=== PATIENT | female | born 1975 | race Caucasian/White ===

== ENCOUNTER 2017-03-11 19:25 | Emergency (ER) | payer OTHER ==
[~2017-03-11] VITALS: Ht 182.9 cm; Wt 86.2 kg
[2017-03-11 19:31] VITALS: BP 119/76
--- NOTE | 2017-03-11 20:20 | ED ANKLE/FOOT INJURY COMPLAINT ---
History of Present Illness General Chief Complaint: Lower Extremity Injury Stated Complaint: "X RAY LT ANKLE" Source: patient, family, old records Exam Limitations: language barrier Vital Signs & Intake/Output Vital Signs & Intake/Output Vital Signs Date Time Temp Pulse Resp B/P B/P Pulse O2 O2 Flow FiO2 Mean Ox Delivery Rate 03/11 1930 97.8 68 18 119/76 99 Room Air Allergies Coded Allergies: No Known Allergies (03/11/17) Reconcile Medications Tylenol With Codeine (Tylenol With Codeine #3 Tablet) 300 MG-30 MG TABLET 1 TAB PO BIDP PRN pain Triage Note: PT TO TRIAGE C/O LEFT ANKLE PAIN S/P ROLLING ANKLE AND FALLING THIS MORNING. PT DENIES HEAD STRIKE, NO DEFORMITY NOTED. PT WENT TO WALK IN THAT SUGGESTED PT COME FOR XRAY. 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 PT PRIMARILY UKRANIAN SPEAKING, DAUGHTER IN TRIAGE HELPING TO TRANSLATE FOR PT. STATES PAIN IS WORSE WHEN STANDING ON ANKLE. Triage Nurses Notes Reviewed? yes Occurred: this morning Duration: day(s): (1), constant Timing: single episode today Severity: moderate Severity Numbers: 7 Pain/Injury Location: Left: Ankle. Method of Injury: twisted Modifying Factors: Improves With: rest. Worsens With: movement. Associated Symptoms: swelling : No Patient currently breastfeeds: No HPI: 41 Year old female presents to the ER for evaluation compalining of left ankle pain since this morning after twisting her ankle. Pain is moderate aching nonradiating. It is worse with weight bearring. she denies any other injury. no back, hip foot or knee pain. 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 (Amrit Mendiola) Past History Travel History Traveled to [place] past 21 day No Medical History Any Pertinent Medical History? none Neurological: NONE EENT: NONE Cardiovascular: NONE Respiratory: NONE Gastrointestinal: NONE Hepatic: NONE Renal: NONE Musculoskeletal: NONE Psychiatric: NONE Endocrine: NONE Blood Disorders: NONE Cancer(s): NONE PIPE FOREMAN/Reproductive: NONE Surgical History Surgical History: none Psychosocial History What is your primary language Korean Tobacco Use: Never used ETOH Use: denies use Family History Hx Contributory? No (Amrit Mendiola) Review of Systems Review of Systems Constitutional: Reports: see HPI. Comments Review of systems: See HPI, All other systems negative. Constitutional, no chills no fever, HEENT: no sore throat no congestion Cardiovascular: No chest pain Skin: no rashes, no change in skin Respiratory: no cough GI: No nausea no vomiting Muscle skeletal: joint pain, no back pain, no neck pain, Neurologic: , no headache Heme/endocrine: No bruising (Amrit Mendiola) Physical Exam Physical Exam General Appearance: well developed/nourished, no apparent distress, alert, awake Leg/Knee/Thigh Left: normal range of motion Comments: Well-developed well-nourished patient in no apparent distress. HEENT: Atraumatic, extraocular motion intact Neck: Supple, FROM Back: FROM Cardiovascular: Regular rate and rhythms Respiratory: No respiratory distress. Patient speaking in full complete sentences. Breath sounds clear to auscultation bilaterally: NO W/R/R Upper Extremities: full range of motion Hip/Pelvis: Atraumatic/Stable. FROM. Knee: Atraumatic/stable. FROM. No joint swelling, no effusion. No laxity. No pain with ROM Leg: Atraumatic. Nontender. no proximal tib/fib tenderness, No edema, 5 out of 5 strength in the lower extremity, normal dorsiflexion of great toe bilaterally, gross sensation is intact, patellar tendon reflex 2+ bilaterally. Ankle/Foot: swelling and ecchymosos noted to lateral malleolus left ankle. the foot is Atraumatic/stable. Skin intact. lrom secondary to pain.. No foot swelling, No laxity on exam Pulses: Normal/equal DP/PT pulses to the left foot. Brisk cap refill Neuro: awake, alert, and oriented to person, place and time. There were no obvious focal neurologic abnormalities. Skin: Warm & dry;No appreciable rash on exposed skin Psych: Mood affect normal, normal memory normal judgment. (Amrit Mendiola) Progress Differential Diagnosis: fracture, dislocation, sprain, contusion, compartmental syndrome Plan of Care: Orders Procedure Date/time Status Durable Medical Equipment 03/11 2110 Active xray was ordered in triage. Sugar tong and U-splint applied by me and discussed the patient and her daughter her x-ray results and need for close follow-up with orthopedist tomorrow. The patient's foot was neurovascularly intact prior to and after application of splint crutches were provided syndrome with Tylenol with Codeine return precautions were discussed at length and discussed with her to use caution as this medication may make her drowsy no driving or drinking alcohol while taking. They feel comfortable plan cleared for discharge Diagnostic Imaging: Viewed by Me: Radiology Read. Discussed w/RAD: Radiology Read. Radiology Impression: PATIENT: TEMITOPE CHANG PRESENT AGE: 41 PATIENT ACCOUNT NO: [id number] : 73 LOCATION: [facility] ORDERING PHYSICIAN: Amrit JONES SERVICE DATE: 03/11/17 EXAM TYPE: RAD - XRY-ANKLE 3 OR MORE VIEWS L; XRY-FOOT COMPLETE, LEFT EXAMINATION: LEFT FOOT, LEFT ANKLE CLINICAL INFORMATION: Fall. Pain COMPARISON: None TECHNIQUE: 1. Left foot. 3 views 2. Left ankle. 3 views FINDINGS: 1. Left foot. At the dorsum of the foot there is a corticated osseous density at the dorsal cortex of the talus appears to be small spur rather than fracture. There is no overlying soft tissue swelling. Soft tissue swelling appears slightly more cephalad of the ankle mortise. No displaced fracture. Joint spaces are normal. 2. Left ankle. There is an oblique fracture of the lateral malleolus. Fracture extends through the distal diaphysis of the fibula to about the level of the synchondrosis. Fracture slightly displaced. No fracture of the tibia. Ankle mortise remains congruent. IMPRESSION: 1. Left foot. No acute osseous abnormality. 2. Left ankle. Oblique fracture lateral malleolus. DICTATED BY: Quinton Edge MD DATE/ TIME DICTATED:03/11/172038 LACE AND TEXTILES RESTORER:ADENIKE DATE/TIME TRANSCRIBED: 03/11/172038 CONFIDENTIAL, DO NOT COPY WITHOUT APPROPRIATE AUTHORIZATION. < Electronically signed in Other Vendor System> SIGNED BY: Quinton Edge MD [id number] (Yany JONES,Amrit) Departure Departure Time of Disposition: 2119 Disposition: HOME OR SELF CARE Condition: Stable Clinical Impression Primary Impression: Ankle fracture Referrals: Dixon ALVARADO,Yaron Siddiqi Unknown (PCP/Family) Additional Instructions: Rest, ice, motrin for pain every 8 hours. tylenol with codeine for breakthrough pain- use caution as this is a narcotic and may make you drowsy.. keep leg elevated. keep splint in place at all times until seen by orthopedist. Follow up with orthopedist dr tavarez tomorrow by calling his office to make an appointment. Crutches when ambulatory. return with any concerns Departure Forms: Customer Survey General Discharge Information Prescriptions: Current Visit Scripts Tylenol With Codeine (Tylenol With Codeine #3 Tablet) 1 TAB PO BIDP PRN pain #12 TAB (Amrit Mendiola) PA/GORE SEAMER Co-Sign Statement Statement: ED Attending supervision documentation- I saw and evaluated the patient. I have also reviewed all the pertinent lab results and diagnostic results. I agree with the findings and the plan of care as documented in the PA's/GORE SEAMER's documentation. x I have reviewed the ED Record and agree with the PA's/GORE SEAMER's documentation. [] Additions or exceptions (if any) to the PAs/GORE SEAMER's note and plan are summarized below: [] (Nick ALVARADO,Aaron) Procedures Splinting Location: lle Manual Alignment Performed: No Hand-Made Type: orthoglass Splint: sugar-tong, posterior walking Splint Applied By: splint applied by me Pre-Proc Neuro Vasc Exam: normal Post-Proc Neuro Vasc Exam: normal (Amrit Mendiola)
--- NOTE | 2017-03-11 20:46 | RADIOLOGY REPORT ---
EXAMINATION: LEFT FOOT, LEFT ANKLE CLINICAL INFORMATION: Fall. Pain COMPARISON: None TECHNIQUE: 1. Left foot. 3 views 2. Left ankle. 3 views FINDINGS: 1. Left foot. At the dorsum of the foot there is a corticated osseous density at the dorsal cortex of the talus appears to be small spur rather than fracture. There is no overlying soft tissue swelling. Soft tissue swelling appears slightly more cephalad of the ankle mortise. No displaced fracture. Joint spaces are normal. 2. Left ankle. There is an oblique fracture of the lateral malleolus. Fracture extends through the distal diaphysis of the fibula to about the level of the synchondrosis. Fracture slightly displaced. No fracture of the tibia. Ankle mortise remains congruent. IMPRESSION: 1. Left foot. No acute osseous abnormality. 2. Left ankle. Oblique fracture lateral malleolus.
[2017-03-11] MEDS ORDERED: TYLENOL WITH C1 EACH PO (21:21)
== END 2017-03-11 21:40 ==
LOC: ERH 19:25
DX: S82.62XA Displaced fracture of lateral malleolus of left fibula, initial encounter for closed fracture (principal); X50.9XXA Other and unspecified overexertion or strenuous movements or postures, initial encounter; Y93.9 Activity, unspecified; Y92.9 Unspecified place or not applicable
CPT/HCPCS: 73610-LT; 73630-LT